=== PATIENT | female | born 1940 | race African-American/Black ===

== ENCOUNTER 2017-10-30 00:43 | Inpatient (IN) | payer MEDICARE ==
[2017-10-30] MEDS ORDERED: metroNIDAZOLE 500 MG/100 ML BAG ONE (01:20)
[2017-10-30] MEDS ORDERED: Loratadine 10 MG TAB PO PRN (06:31)
[2017-10-30] MEDS ORDERED: Acetaminophen 325 MG TAB PO PRN (06:31)
[2017-10-30] MEDS ORDERED: Artificial Tears 18 DROP/0.9 ML EA EYE PRN (06:31)
[2017-10-30] MEDS ORDERED: hydrALAZINE 20 MG/ML VIAL SLOW IVP PRN (06:31)
[2017-10-30] MEDS ORDERED: HYDROcodone/Acetaminophen 5/325 mg Tablet PO PRN (06:31)
[2017-10-30] MEDS ORDERED: Diphenoxylate HCl/Atropine Tablet PO PRN (06:31)
[2017-10-30] MEDS ORDERED: Diabetic Tussin 200 MG/10 ML UDCUP PO PRN (06:31)
[2017-10-30] MEDS ORDERED: Eucerin (Mineral Oil/Petrolatum,White) 30 gm Jar TOP PRN (06:31)
[2017-10-30] MEDS ORDERED: Sodium Chloride 0.65% Nasal 44 ML BOT EA NARE PRN (06:31)
[2017-10-30] MEDS ORDERED: Mag-Al 1200 mg/1200 mg/30 ML UDCUP PO PRN (06:31)
[2017-10-30] MEDS ORDERED: Ondansetron ODT 4 MG TAB PO PRN (06:31)
[2017-10-30] MEDS ORDERED: Ondansetron HCl/PF 4 MG/2 ML Vial IVP PRN (06:31)
[2017-10-30] MEDS ORDERED: Chloraseptic Spray 180 ml Bottle PO PRN (06:31)
[2017-10-30] MEDS: Enoxaparin Sodium 40 MG/0.4 ML SYRINGE SC SCH (08:55)
[2017-10-30] MEDS: Famotidine/PF 20 mg/2ml Vial SLOW IVP SCH ×2 (08:56→20:23)
[2017-10-30] MEDS: predniSONE 5 MG TAB PO SCH (08:56)
[2017-10-30] MEDS: Saccharomyces boulardii 250 MG CAP PO SCH (08:56)
[2017-10-30] MEDS: Aspirin 81 mg Enteric Coated Tablet PO SCH (08:56)
[2017-10-30] MEDS ORDERED: Prevnar 13-Val Conj/PF 0.5 ML SYRINGE IM ONE (09:00)
[2017-10-30] MEDS: Timolol 0.5% Ophth Soln 5 ml Bottle EA EYE SCH ×2 (11:54→20:27)
--- NOTE | 2017-10-30 12:21 | HP ---
PRIMARY CARE PHYSICIAN: Dr. Rian Cardoza. REASON FOR ADMISSION: Sepsis, diarrhea, lactic acidosis, hypotension. HISTORY OF PRESENT ILLNESS: A 77-year-old female who has underlying history of hypertension and glaucoma as well as bilateral below knee amputation who initially went to [facility] for evaluation of acute onset of generalized weakness and diarrhea. Patient reports that yesterday in the evening time, patient ate [employer] fries and when she went home she was not feeling good. She was having gurgling sound in her abdomen. She was having large bowel movement during night time. She was feeling nauseated and she did not have any vomiting. She was feeling subsequently very weak and cold. She did not have any fever, but she was feeling extremely weak and that is why she went to local emergency room in [place]. The patient was hypotensive and she was febrile as well as little bit tachycardic. Patient was meeting sepsis criteria. She was given 2 liters of IV fluid and she had routine blood tests showed lactic acidosis as well as leukocytosis and patient was sent to our emergency room for evaluation. In our emergency room, patient was given Flagyl and subsequently she was admitted to medical floor. The patient is feeling better. This morning, she has less abdominal discomfort and so she does not have any diarrhea so far. She denies any UTI symptoms. She denies any cough or chills. She denies any upper or lower respiratory symptoms. She denies any melena, hematochezia. She denies any UTI symptoms. When I saw this patient at that time, the patient's blood pressure was running low. REVIEW OF SYSTEMS: The following complete review of systems was negative, unless otherwise mentioned in the HPI or below: Constitutional: Weight loss or gain, ability to conduct usual activities. Skin: Rash, itching. Eyes: Double vision, pain. ENT/Mouth: Nose bleeding, neck stiffness, pain, tenderness. Cardiovascular: Palpitations, dyspnea on exertion, orthopnea. Respiratory: Shortness of breath, wheezing, cough, hemoptysis, fever or night sweats. Gastrointestinal: Poor appetite, abdominal pain, heartburn, nausea, vomiting, constipation, or diarrhea. Genitourinary: Urgency, frequency, dysuria, nocturia. Musculoskeletal: Pain, swelling. Neurologic/Psychiatric: Anxiety, depression. Allergy/Immunologic: Skin rash, bleeding tendency. Please see my HPI for pertinent positive and negative. All other review of systems reviewed and negative except as mentioned in the HPI. PAST MEDICAL HISTORY: History of stroke with left-sided weakness, hypertension , dyslipidemia, history of seizure, history of lupus related vasculitis. PAST SURGICAL HISTORY: Cholecystectomy, hysterectomy, bilateral below knee amputation with prosthetic limbs, hysterectomy. PAST PSYCHIATRIC HISTORY: Reviewed and negative. SOCIAL HISTORY: The patient lives at home with family. No history of tobacco, alcohol or illicit drug abuse. She is mostly ambulates with wheelchair. FAMILY HISTORY: No strong family history of CAD, CVA or cancer. ALLERGIES: SULFA DRUGS. CURRENT HOME MEDICATIONS: Aspirin 81 mg p.o. daily, clonidine 0.3 mg t.i.d., hydralazine 25 mg t.i.d., hydrochlorothiazide 25 mg p.o. daily, lisinopril 20 mg p.o. b.i.d., metoprolol 25 mg p.o. b.i.d., Procardia-XL 60 mg p.o. daily, pravastatin 40 mg p.o. at bedtime, prednisone 5 mg p.o. daily, timolol ophthalmic drops b.i.d., Travatan ophthalmic drops at bedtime. EMERGENCY ROOM COURSE: Patient was given 2 liter IV fluid at [facility] and Flagyl 500 mg in our emergency room. PHYSICAL EXAMINATION: VITAL SIGNS: On arrival, blood pressure 103/88, she was having a fever of 100.7 with a pulse of 110 at [facility]. Currently, patient's temperature is 98.3, weight 166 pounds. GENERAL: Patient is currently alert, awake, in no obvious acute distress. HEAD: Normocephalic, atraumatic. EYES: Pupils round, reactive to light. Extraocular muscle intact. ENT: Oropharynx within normal limits. Moist mucous membranes, no oral lesion, no pharyngeal erythema, no exudate. NECK: Supple, no JVD, no thyromegaly, no carotid bruit, no jugular venous distention. LUNGS: Clear to auscultation without any rhonchi or rales. CARDIAC: S1 and S2 regular. No gross murmur noted, no gallop, no rub. ABDOMEN: Mild discomfort noted, but no peritoneal sign, no organomegaly, no mass, no suprapubic tenderness. BACK: Examination unremarkable, no CVA tenderness. EXTREMITIES: Upper extremity passive movements of all joints are normal. Lower extremity bilateral below-knee amputation with prosthetic limb. NEUROLOGIC: Nonfocal examination. SIGNIFICANT LABORATORY DATA: CBC: WBC 15.5, hemoglobin 12.2, platelet of 233 with bandemia. BMP: Sodium 143, potassium 3.8, chloride 105, carbon dioxide 25 , anion gap 17, BUN 21, creatinine 1.12, glucose 99, calcium 10.0, lactic acid 3.6 and then 2.0. LFT: AST 19, ALT 14, alkaline phosphatase 92, albumin 4.0, cortisol 10.30. Urinalysis: Leukocyte esterase trace. ASSESSMENT AND PLAN/IMPRESSION: 1. Sepsis with hypotension. Patient meets sepsis criteria. She has low-grade fever, tachycardia, leukocytosis with bandemia. Source of infection is most likely gastroenteritis versus urinary tract infection. The patient will be kept on broad spectrum antibiotic therapy with Cipro and Flagyl. We will follow up on culture result. 2. Acute gastroenteritis, presumed infection. We will send stool for infection workup including ova and parasite, Campylobacter antigen, and C. diff. The patient is already on Flagyl therapy as well as probiotic therapy. Patient will be given IV fluid with NS at 100 mL per hour. 3. Lactic acidosis, likely due to sepsis. Repeat lactic acid level is normal. 4. Urinary tract infection. We will send urine culture and continue with Cipro 400 mg IV b.i.d. 5. Hypertension, currently patient has low blood pressure and that is why we will hold on antihypertensive medication. When blood pressure permits, at that time we will resume patient's antihypertensive medication. 6. Dyslipidemia. We will continue pravastatin 40 mg p.o. at bedtime. 7. Glaucoma. We will continue timolol ophthalmic drops and Travatan ophthalmic drops as per home dosage. 8. Chronic kidney disease stage 3, we will monitor renal function. 9. Deep venous thrombosis prophylaxis, Lovenox 40 mg subcu daily. 10. Gastrointestinal prophylaxis, Pepcid 20 mg IV b.i.d. 11. Code status: The patient is FULL CODE. The patient does not have any surrogate decision maker. Disposition plan based on clinical course. We are expecting patient's stay in hospital more than 2 midnights. Plan of care discussed with the patient in detail. MTDD
[2017-10-30] MEDS: Sodium Chloride 0.9% 1,000 ML IV SCH ×2 (13:08→21:37)
[2017-10-30] MEDS: metroNIDAZOLE 500 MG in Premix Bag 1 BAG IVPB SCH ×2 (13:10→21:37)
[2017-10-30] MEDS: Atorvastatin Calcium 10 MG TAB PO SCH (20:23)
[2017-10-30] MEDS ORDERED: Pravastatin Sodium 40 MG TAB PO SCH (21:00)
[2017-10-30] MEDS ORDERED: Non-Formulary Item 1 EACH (Travoprost [Travatan Z] 1 DROP) EA EYE SCH (21:00)
[2017-10-30] MEDS: Latanoprost 0.005% Ophth Soln 2.5 ml Bottle EA EYE SCH (21:36)
[2017-10-31 04:24] LABS: #Basophils 0.1 thou/uL (0.0-0.2); #Eosinphils 0.2 thou/uL (0.0-0.7); #Lymphocytes 2.3 thou/uL (1.20-3.40); #Monocytes 0.8 thou/uL (0.11-0.59); #Neutrophils 5.1 thou/uL (1.40-6.50); %Basophils 0.8 % (0.0-1.0); %Eosinophils 2.5 % (0.0-10.0); %Lymphocytes 26.9 % (21.0-51.0); %Monocytes 9.2 % (0.0-10.0); %Neutrophils 60.6 % (42.0-75.0); Hemoglobin 10.4 g/dL (12.0-16.0); Mean Corpuscular HGB CONC 33.2 g/dL (32.0-36.0); Mean Corpuscular Hemoglobin 31.2 pg (27.0-31.0); Mean Corpuscular Volume 93.9 fL (78.0-98.0); Mean Platelet Volume 9.5 fL (7.4-10.4); Platelet Count 170 thou/uL (130-400); RBC Distribution Width 13.6 % (11.5-14.5); Red Blood Cell (RBC) Count 3.33 mill/uL (4.20-5.40); White Blood Cell (WBC) Count 8.5 thou/uL (4.8-10.8)
[2017-10-31 04:36] LABS: ALT (SGPT) 19 U/L (8-55); AST (SGOT) 23 U/L (5-34); Albumin 3.1 g/dL (3.4-4.8); Alkaline Phosphatase 66 U/L (40-150); Anion Gap 13 mmol/L (10-20); BUN (Urea Nitrogen) 16 mg/dL (9.8-20.1); Bilirubin, Total 0.3 mg/dL (0.2-1.2); Calc. Creatinine Clearance 54 mL/min (70-130); Calcium 8.3 mg/dL (7.8-10.44); Carbon Dioxide 19 mmol/L (23-31); Chloride 112 mmol/L (98-107); Estimated GFR-MDRD 63; Globulin 2.8 g/dL (2.4-3.5); Glucose 97 mg/dL (83-110); Potassium 3.8 mmol/L (3.5-5.1); Protein, Total 5.9 g/dL (6.0-8.3); Sodium 140 mmol/L (136-145)
[2017-10-31] MEDS: metroNIDAZOLE 500 MG in Premix Bag 1 BAG IVPB SCH ×3 (05:00→22:18)
[2017-10-31] MEDS: predniSONE 5 MG TAB PO SCH (07:53)
[2017-10-31] MEDS: Aspirin 81 mg Enteric Coated Tablet PO SCH (07:53)
[2017-10-31] MEDS: Saccharomyces boulardii 250 MG CAP PO SCH (07:53)
[2017-10-31] MEDS: Enoxaparin Sodium 40 MG/0.4 ML SYRINGE SC SCH (07:54)
[2017-10-31] MEDS: Famotidine/PF 20 mg/2ml Vial SLOW IVP SCH ×2 (07:54→20:15)
[2017-10-31] MEDS: Timolol 0.5% Ophth Soln 5 ml Bottle EA EYE SCH ×2 (07:55→20:19)
[2017-10-31] MEDS: NIFEdipine XL 60 MG TAB PO SCH (10:18)
[2017-10-31] MEDS: cloNIDine 0.3 MG TAB PO SCH ×3 (10:18→20:16)
[2017-10-31] MEDS: Lisinopril 20 MG TAB PO SCH ×2 (10:19→20:16)
[2017-10-31] MEDS: Metoprolol Tartrate 25 MG TAB PO SCH ×2 (10:19→20:17)
--- NOTE | 2017-10-31 10:42 | PDOC.PN ---
- Subjective Encounter Start Date: 10/31/17 Encounter Start Time: 07:30 -: old records requested/rev Patient seen and examined. No new complaints. No overnight events this morning BP is high, no diarrhoea, has nausea, no vomiting, no fever - Objective Resuscitation Status: Resuscitation Status FULL:Full Resuscitation MAR Reviewed: Yes Vital Signs & Weight: Vital Signs (12 hours) Temp Pulse Resp BP BP Pulse Ox 10/31/17 10:19 115/71 10/31/17 10:18 79 187/84 H 10/31/17 08:00 98.2 F 79 16 10/31/17 07:55 79 10/31/17 07:24 98.2 F 79 16 172/93 H 94 L 10/31/17 04:00 98.0 F 73 16 162/86 H 93 L 10/31/17 00:00 98.1 F 64 16 127/75 97 Weight Weight 166 lb 6 oz I&O: 10/30/17 10/31/17 11/01/17 06:59 06:59 06:59 Intake Total 2767 Balance 2767 Result Diagrams: 10/31/17 03:29 10/31/17 03:29 Phys Exam - Physical Examination Constitutional: NAD HEENT: PERRLA, moist MMs, sclera anicteric Neck: no JVD, supple Respiratory: no wheezing, no rales, no rhonchi Cardiovascular: RRR, no significant murmur, no rub Gastrointestinal: soft, non-tender, no distention, positive bowel sounds bilateral BKA Neurological: non-focal, normal sensation Lymphatic: no nodes Psychiatric: normal affect, A&O x 3 Skin: no rash, normal turgor Dx/Plan (1) Gastroenteritis presumed infectious Code(s): K52.9 - NONINFECTIVE GASTROENTERITIS AND COLITIS, UNSPECIFIED Status : Acute (2) Hypotension Status: Resolved (3) Lactic acidosis Code(s): E87.2 - ACIDOSIS Status: Resolved (4) Sepsis Code(s): A41.9 - SEPSIS, UNSPECIFIED ORGANISM Status: Acute (5) UTI (urinary tract infection) Status: Acute (6) Anemia, normocytic normochromic Code(s): D64.9 - ANEMIA, UNSPECIFIED Status: Chronic (7) Dyslipidemia Code(s): E78.5 - HYPERLIPIDEMIA, UNSPECIFIED Status: Chronic (8) Glaucoma Code(s): H40.9 - UNSPECIFIED GLAUCOMA Status: Chronic (9) H/O systemic lupus erythematosus (SLE) Code(s): Z87.39 - PERSONAL HISTORY OF DISEASES OF THE MS SYS AND CONN TISS Status: Chronic (10) Hx of below knee amputation Code(s): Z89.519 - ACQUIRED ABSENCE OF UNSPECIFIED LEG BELOW KNEE Status: Chronic (11) Hypertension Code(s): I10 - ESSENTIAL (PRIMARY) HYPERTENSION Status: Chronic - Plan cont current plan of care, plan discussed w/ family, continue antibiotics * today DC IVF * start her selected BP meds * medication reviewed as below * symptomatic treatment * so far culture negative * continue cipro and flagyl * expecting discharge tomorrow * discussed with family bedside. Review of Systems - Review of Systems Eyes: negative: Pain, Vision Change, Conjunctivae Inflammation, Eyelid Inflammation, Redness, Other ENT: negative: Ear Pain, Ear Discharge, Nose Pain, Nose Discharge, Nose Congestion, Mouth Pain, Mouth Swelling, Throat Pain, Throat Swelling, Other Respiratory: negative: Cough, Dry, Shortness of Breath, Hemoptysis, SOB with Excertion, Pleuritic Pain, Sputum, Wheezing Cardiovascular: negative: chest pain, palpitations, orthopnea, paroxysmal nocturnal dyspnea, edema, light headedness, other Gastrointestinal: Nausea. negative: Vomiting, Abdominal Pain, Diarrhea, Constipation, Melena, Hematochezia, Other Genitourinary: negative: Dysuria, Frequency, Incontinence, Hematuria, Retention , Other Musculoskeletal: negative: Neck Pain, Shoulder Pain, Arm Pain, Back Pain, Hand Pain, Leg Pain, Foot Pain, Other - Medications/Allergies Allergies/Adverse Reactions: Allergies Allergy/AdvReac Type Severity Reaction Status Date / Time Sulfa (Sulfonamide Allergy Verified 08/02/15 12:50 Antibiotics) Medications: Current Medications Acetaminophen (Tylenol) 650 mg PO Q4H PRN PRN Reason: Headache/Fever or Pain Hydrocodone Bitart/Acetaminophen ([place] 5/325) 1 tab PO Q4H PRN PRN Reason: Moderate Pain (4-6) Last Admin: 10/31/17 07:54 Dose: 1 tab Al Hydroxide/Mg Hydroxide (Maalox) 30 ml PO Q6H PRN PRN Reason: Heartburn or Indigestion Artificial Tears (Tears Naturale) 0 drop EA EYE PRN PRN PRN Reason: Dry Eyes Aspirin (Ecotrin) 81 mg PO DAILY [facility] Last Admin: 10/31/17 07:53 Dose: 81 mg Atorvastatin Calcium (Lipitor) 10 mg PO [facility] Last Admin: 10/30/17 20:23 Dose: 10 mg Clonidine (Catapres) 0.3 mg PO TID [facility] Last Admin: 10/31/17 10:18 Dose: 0.3 mg Diphenoxylate HCl/Atropine (Lomotil) 1 tab PO QIDPRN PRN PRN Reason: Diarrhea/Loose Stools Enoxaparin Sodium (Lovenox) 40 mg SC 09 [facility] Last Admin: 10/31/17 07:54 Dose: Not Given Famotidine (Pepcid) 20 mg SLOW IVP Q12HR [facility] Last Admin: 10/31/17 07:54 Dose: 20 mg Guaifenesin (Robitussin Sf) 200 mg PO Q4H PRN PRN Reason: Cough Hydralazine HCl (Apresoline) 5 mg SLOW IVP Q4H PRN PRN Reason: Systolic BP > 180 Metronidazole 500 mg/ Device 100 mls @ 100 mls/hr IVPB Q8HR [facility] Last Admin: 10/31/17 05:00 Dose: 100 mls Ciprofloxacin/Dextrose 400 mg/ (Device) 200 mls @ 200 mls/hr IVPB Q12HR [facility] Last Admin: 10/31/17 07:53 Dose: 200 mls Latanoprost (Xalatan 0.005% Ophth Soln) 1 drop EA EYE [facility] Last Admin: 10/30/17 21:36 Dose: 1 drop Lisinopril (Zestril) 20 mg PO BID [facility] Last Admin: 10/31/17 10:19 Dose: Not Given Loratadine (Claritin) 10 mg PO DAILYPRN PRN PRN Reason: Sinus Symptoms Metoprolol Tartrate (Lopressor) 25 mg PO BID [facility] Last Admin: 10/31/17 10:19 Dose: 25 mg Mineral Oil/White Petrolatum (Eucerin Cream) 0 gm TOP BIDPRN PRN PRN Reason: Dry Skin Nifedipine (Procardia Xl) 60 mg PO QAM [facility] Last Admin: 10/31/17 10:18 Dose: Not Given Ondansetron HCl (Zofran Odt) 4 mg PO Q6H PRN PRN Reason: Nausea/Vomiting Last Admin: 10/31/17 08:23 Dose: 4 mg Ondansetron HCl (Zofran) 4 mg IVP Q6H PRN PRN Reason: Nausea/Vomiting Phenol (Chloraseptic Cassatt 180 Ml Bot) 0 ml PO PRN PRN PRN Reason: Sore Throat Prednisone (Prednisone) 5 mg PO QAM-WM [facility] Last Admin: 10/31/17 07:53 Dose: 5 mg Saccharomyces Boulardii (Florastor) 250 mg PO DAILY [facility] Last Admin: 10/31/17 07:53 Dose: 250 mg Sodium Chloride ([place] Nasal [place]att 0.65%) 0 ml EA NARE QIDPRN PRN PRN Reason: Nasal Congestion Sodium Chloride (Flush - Normal Saline) 10 ml IVF Q12HR [facility] Last Admin: 10/31/17 07:55 Dose: 10 ml Sodium Chloride (Flush - Normal Saline) 10 ml IVF PRN PRN PRN Reason: Saline Flush Tim[facility]ol [facility]) 1 drop EA EYE BID [facility] Last Admin: 10/31/17 07:55 Dose: 1 drop
[2017-10-31] MEDS: Atorvastatin Calcium 10 MG TAB PO SCH (20:16)
[2017-10-31] MEDS: Latanoprost 0.005% Ophth Soln 2.5 ml Bottle EA EYE SCH (20:20)
[2017-11-01] MEDS: metroNIDAZOLE 500 MG in Premix Bag 1 BAG IVPB SCH ×2 (05:48→13:22)
[2017-11-01] MEDS: Saccharomyces boulardii 250 MG CAP PO SCH (08:08)
[2017-11-01] MEDS: cloNIDine 0.3 MG TAB PO SCH ×2 (08:08→14:28)
[2017-11-01] MEDS: predniSONE 5 MG TAB PO SCH (08:09)
[2017-11-01] MEDS: Famotidine/PF 20 mg/2ml Vial SLOW IVP SCH (08:09)
[2017-11-01] MEDS: Aspirin 81 mg Enteric Coated Tablet PO SCH (08:09)
[2017-11-01] MEDS: Metoprolol Tartrate 25 MG TAB PO SCH (08:09)
[2017-11-01] MEDS: Enoxaparin Sodium 40 MG/0.4 ML SYRINGE SC SCH (08:10)
[2017-11-01] MEDS: Timolol 0.5% Ophth Soln 5 ml Bottle EA EYE SCH (08:12)
[2017-11-01] MEDS: NIFEdipine XL 60 MG TAB PO SCH (09:57)
[2017-11-01] MEDS: Lisinopril 20 MG TAB PO SCH (09:57)
[2017-11-01 14:21] VITALS: BP 153/85; TEMP 98.3
--- NOTE | 2017-11-01 18:45 | DIS ---
DATE OF ADMISSION: 10/30/2017 DATE OF DISCHARGE: 11/01/2017 CONDITION AT THE TIME OF DISCHARGE: Stable and improved. DISCHARGE DIAGNOSES: 1. Noninfectious gastroenteritis, improved. 2. Hypotension secondary to noninfectious gastroenteritis, resolved. 3. Lactic acidosis secondary to hypotension, resolved. 4. Sepsis secondary to noninfectious gastroenteritis, ruled out. 5. Urinary tract infection. 6. Normochromic normocytic anemia. 7. Dyslipidemia. 8. Glaucoma. 9. History of systemic lupus erythematosus. 10. History of below knee amputation. 11. Hypertension. DISCHARGE DISPOSITION: Home. DISCHARGE MEDICATIONS: Ciprofloxacin 500 mg p.o. b.i.d. for 5 days, metronidazole 500 t.i.d. for 5 d ays, Zofran p.r.n. every 6 hours for nausea and vomiting and Florastor 250 mg p.o. daily for 14 days. Resume home medications as follows: Metoprolol tartrate 25 mg p.o. b.i.d., lisinopril 20 mg p.o. b .i.d., hydrochlorothiazide 25 mg daily, aspirin 81 mg daily, pravastatin 40 mg daily, nifedipine 60 m g daily, clonidine 0.3 mg p.o. t.i.d., travoprost eyedrops, timolol eyedrops, hydralazine 25 t.i.d., prednisone 5 mg daily. PRIMARY CARE PHYSICIAN: Rian Cardoza M.D. HISTORY OF PRESENTING ILLNESS: Ms. Toure is a 77-year-old female with past medical history of SLE, hypertension, dyslipidemia and seizure who presented to the emergency room with complaints of diarrh ea after eating [employer]. She was found to be hypotensive and a bit tachycardic in the emergency room, meeting the sepsis criteria on presentation. She did have lactic acidosis as well as leukocyto sis and was started on IV antibiotic and IV fluids for possible sepsis. Her urinalysis also showed t race leukocyte esterase. She was started on broad spectrum IV antibiotics and was admitted. Please see admission history and physical for further details. HOSPITAL COURSE: The patient did not have any stools while she was in the hospital for over 48 hours . Stool samples were ordered for ova and parasites, Clostridium difficile and Campylobacter, but the sample was not obtainable. She had clinical improvement and her WBC count here was 8.5 without any left shift and repeat lactic acid was 2.0. Urine culture was sent and was negative until date. Bloo d cultures were negative until date as well. As of this morning, she is feeling better and able to tolerate a soft liquid diet without any nausea, vomiting or diarrhea. She is hemodynamically stable and will be discharged on oral antibiotics and probiotics and follow up with primary care physician. Discharge plan was discussed with the patient who verbalized understanding. She was seen and examined prior to discharge. PHYSICAL EXAMINATION: VITAL SIGNS: This morning, temperature 98.3, pulse of 79, blood pressure 117/72, saturating 96% on r oom air. GENERAL: In no acute distress, awake, alert and oriented x3. CHEST: Clear to auscultation bilaterally. Rate and rhythm regular. ABDOMEN: Soft, nontender, nondistended.
== END 2017-11-01 14:38 | disposition home or self-care (01) | DRG 392 ==
LOC: ERS 00:43 → T4-A 02:40 → OBSVTOIN 06:30
PROVIDERS: ADMIT Internal Medicine; ATTEND Internal Medicine
DX: K52.9 Noninfective gastroenteritis and colitis, unspecified (principal); E87.2 Acidosis; I69.354 Hemiplegia and hemiparesis following cerebral infarction affecting left non-dominant side; I95.9 Hypotension, unspecified; H40.9 Unspecified glaucoma; E78.5 Hyperlipidemia, unspecified; N18.3 Chronic kidney disease, stage 3 (moderate); I12.9 Hypertensive chronic kidney disease with stage 1 through stage 4 chronic kidney disease, or unspecified chronic kidney disease; Z90.710 Acquired absence of both cervix and uterus; Z90.49 Acquired absence of other specified parts of digestive tract; Z88.2 Allergy status to sulfonamides; Z89.511 Acquired absence of right leg below knee; Z89.512 Acquired absence of left leg below knee
CPT/HCPCS: 36415; 80053; 82533; 83605; 85025; 87086; 90471; 90670; 96365; A4216; G0009; J0744; J1650; Q0162; S0028

== ENCOUNTER 2020-10-18 07:10 | Observation (INO) | payer MEDICARE ==
[2020-10-18] MEDS ORDERED: Aspirin Chewable 81 MG TAB ONE (08:08)
[2020-10-18] MEDS ORDERED: hydrALAZINE 25 MG TAB ONE (08:08)
[2020-10-18] MEDS ORDERED: Metoprolol Tartrate 50 MG TAB ONE (08:08)
[2020-10-18] MEDS ORDERED: Hydrochlorothiazide 25 MG TAB PO SCH (08:30)
[2020-10-18] MEDS ORDERED: Acetaminophen 500 MG TAB ONE (09:24)
[2020-10-18 11:05] LABS: Troponin I 0.126 ng/mL (< 0.028)
[2020-10-18] MEDS ORDERED: cloNIDine 0.1 MG TAB PO SCH (11:14)
[2020-10-18] MEDS ORDERED: Labetalol HCl 100 MG/20 ML VIAL SLOW IVP PRN (11:15)
[2020-10-18] MEDS ORDERED: cloNIDine 0.1 MG TAB ONE (11:22)
[2020-10-18] MEDS ORDERED: Acetaminophen 650 MG Suppository PR PRN (11:24)
[2020-10-18] MEDS ORDERED: Acetaminophen 325 MG TAB PO PRN (11:24)
[2020-10-18] MEDS ORDERED: Ondansetron PF 4 MG/2 ML Vial IVP PRN (11:24)
[2020-10-18] MEDS ORDERED: Enoxaparin Sodium 40 MG/0.4 ML SYRINGE SC SCH (11:45)
[2020-10-18] MEDS ORDERED: Ascorbic Acid 500 mg Chewable Tablet PO SCH (11:45)
[2020-10-18] MEDS ORDERED: Zinc Sulfate 220 MG CAP PO SCH (11:45)
[2020-10-18 12:12] LABS: #Lymphocytes 1.2 thou/uL (1.20-3.40); #Monocytes 0.4 thou/uL (0.11-0.59); #Neutrophils 11.2 thou/uL (1.40-6.50); %Eosinophils 0.1 % (0.0-10.0); %Lymphocytes 9.3 % (21.0-51.0); %Neutrophils 87.5 % (42.0-75.0); Hemoglobin 13.3 g/dL (12.0-16.0); Mean Corpuscular HGB CONC 33.8 g/dL (32.0-36.0); Mean Corpuscular Hemoglobin 30.4 pg (27.0-31.0); Mean Platelet Volume 10.6 fL (7.4-10.4); Platelet Count 165 thou/uL (130-400); RBC Distribution Width 13.6 % (11.5-14.5); Red Blood Cell (RBC) Count 4.36 mill/uL (4.20-5.40); White Blood Cell (WBC) Count 12.8 thou/uL (4.8-10.8)
[2020-10-18] MEDS ORDERED: Enoxaparin Sodium 40 MG/0.4 ML SYRINGE ONE (12:17)
[2020-10-18 12:38] LABS: Lactic Acid 1.5 mmol/L (0.5-2.2)
[2020-10-18 12:42] LABS: Anion Gap 14 mmol/L (10-20); BUN (Urea Nitrogen) 22 mg/dL (9.8-20.1); Calc. Creatinine Clearance 0 mL/min (70-130); Calcium 8.6 mg/dL (7.8-10.44); Carbon Dioxide 26 mmol/L (23-31); Chloride 101 mmol/L (98-107); Glucose 115 mg/dL (83-110); Magnesium 1.6 mg/dL (1.6-2.6); Potassium 3.2 mmol/L (3.5-5.1); Sodium 138 mmol/L (136-145)
[2020-10-18] MEDS ORDERED: Ondansetron ODT 4 MG TAB ONE (12:57)
[2020-10-18] MEDS: Ondansetron ODT 4 MG TAB PO PRN ×2 (13:04→21:25)
[2020-10-18] MEDS ORDERED: Magnesium Oxide 400 MG TAB PO SCH (16:27)
[2020-10-18] MEDS ORDERED: Potassium Chloride 20 MEQ TAB PO SCH (16:30)
[2020-10-18 17:03] LABS: Magnesium 1.6 mg/dL (1.6-2.6)
[2020-10-18 17:13] LABS: Troponin I 0.086 ng/mL (< 0.028)
[2020-10-18 18:26] VITALS: BMI 23.1
[2020-10-18] MEDS: cloNIDine 0.1 MG TAB PO PRN (18:36)
[2020-10-18] MEDS ORDERED: hydrALAZINE 25 MG TAB PO SCH (21:00)
[2020-10-18] MEDS ORDERED: Metoprolol Tartrate 50 MG TAB PO SCH (21:00)
[2020-10-19 05:04] LABS: #Lymphocytes 1.8 thou/uL (1.20-3.40); #Monocytes 0.5 thou/uL (0.11-0.59); #Neutrophils 12.4 thou/uL (1.40-6.50); %Basophils 0.2 % (0.0-1.0); %Lymphocytes 11.9 % (21.0-51.0); %Monocytes 3.3 % (0.0-10.0); %Neutrophils 84.6 % (42.0-75.0); Hemoglobin 12.6 g/dL (12.0-16.0); Mean Corpuscular HGB CONC 32.9 g/dL (32.0-36.0); Mean Corpuscular Hemoglobin 29.8 pg (27.0-31.0); Mean Corpuscular Volume 90.6 fL (78.0-98.0); Mean Platelet Volume 11.1 fL (7.4-10.4); Platelet Count 166 thou/uL (130-400); RBC Distribution Width 13.3 % (11.5-14.5); Red Blood Cell (RBC) Count 4.23 mill/uL (4.20-5.40); White Blood Cell (WBC) Count 14.7 thou/uL (4.8-10.8)
[2020-10-19 05:27] LABS: Anion Gap 13 mmol/L (10-20); BUN (Urea Nitrogen) 23 mg/dL (9.8-20.1); Calc. Creatinine Clearance 39 mL/min (70-130); Calcium 8.9 mg/dL (7.8-10.44); Carbon Dioxide 29 mmol/L (23-31); Chloride 99 mmol/L (98-107); Cholesterol 139 mg/dl (< 200 Desired); Glucose 112 mg/dL (83-110); HDL Cholesterol 23 mg/dL (>60 Neg Risk); LDL Cholesterol, Calculated 87 mg/dL; Magnesium 1.6 mg/dL (1.6-2.6); Sodium 138 mmol/L (136-145); Triglycerides 147 mg/dL (Less than 150)
[2020-10-19] MEDS ORDERED: Potassium Chloride 20 MEQ in Premix Bag 1 BAG IVPB SCH (06:15)
[2020-10-19] MEDS ORDERED: predniSONE 5 MG TAB PO SCH ×2 (08:00)
[2020-10-19] MEDS ORDERED: NIFEdipine XL 60 MG TAB PO SCH (09:00)
[2020-10-19] MEDS ORDERED: Enoxaparin Sodium 40 MG/0.4 ML SYRINGE SC SCH (09:00)
[2020-10-19] MEDS ORDERED: Aspirin 81 mg Enteric Coated Tablet PO SCH (09:00)
[2020-10-19] MEDS ORDERED: Timolol 0.5% Ophth Soln 5 ml Bottle EA EYE SCH (09:00)
[2020-10-19] MEDS ORDERED: Ascorbic Acid 500 mg Chewable Tablet PO SCH (09:00)
[2020-10-19] MEDS ORDERED: Zinc Sulfate 220 MG CAP PO SCH (09:00)
[2020-10-19] MEDS ORDERED: Metoprolol Tartrate 50 MG TAB PO SCH (09:00)
[2020-10-19] MEDS: hydrALAZINE 25 MG TAB PO SCH ×2 (10:20→15:33)
[2020-10-19] MEDS: cloNIDine 0.1 MG TAB PO PRN (13:17)
[2020-10-19 14:39] VITALS: BP 128/60
[2020-10-19 15:22] VITALS: TEMP 96.7
[2020-10-19] MEDS ORDERED: Latanoprost 0.005% Ophth Soln 2.5 ml Bottle EA EYE SCH (21:00)
[2020-10-19] MEDS ORDERED: Non-Formulary Item 1 EACH (Travoprost [Travatan Z] 2.5 ML Bot) EA EYE SCH (21:00)
== END 2020-10-19 17:22 | disposition home or self-care (01) ==
LOC: ERS 07:10 → ERHOLD 10:01 → 2SW 18:01
PROVIDERS: ADMIT Internal Medicine; ATTEND Internal Medicine
DX: A41.89 Other specified sepsis (principal); U07.1 COVID-19; J12.82 Pneumonia due to coronavirus disease 2019; I16.0 Hypertensive urgency; R79.89 Other specified abnormal findings of blood chemistry; E87.6 Hypokalemia; E83.42 Hypomagnesemia; M32.9 Systemic lupus erythematosus, unspecified; I73.9 Peripheral vascular disease, unspecified; I11.9 Hypertensive heart disease without heart failure; R77.8 Other specified abnormalities of plasma proteins; I69.354 Hemiplegia and hemiparesis following cerebral infarction affecting left non-dominant side; Z79.52 Long term (current) use of systemic steroids; Z79.82 Long term (current) use of aspirin; Z79.899 Other long term (current) drug therapy; Z88.2 Allergy status to sulfonamides; Z89.511 Acquired absence of right leg below knee; Z89.512 Acquired absence of left leg below knee; Z99.3 Dependence on wheelchair
CPT/HCPCS: 80048 ×2; 80061; 82728; 83605; 83615; 83735 ×2; 83880; 84484; 85025 ×2; 86140; 87040; 87086; 93005; 96372 ×2; 96374; 99285; G0378 ×3; 36415; J1650; J3480; J7512; Q0162